=== PATIENT | male | born 1945 | race African-American/Black ===

== ENCOUNTER 2017-02-08 16:26 | Inpatient (IN) | payer MEDICARE ==
[~2017-02-08] VITALS: Ht 175.3 cm; Wt 74.8 kg
[2017-02-08 21:00] VITALS: BP 143/82
[2017-02-09] VITALS: BP 143/86
[2017-02-09 04:00] VITALS: BP 143/95
[2017-02-09 07:48] VITALS: BP 148/76
[2017-02-09 08:36] LABS: BASOPHILS % (AUTO) 0.9 % (0.0-2.0); EOSINOPHILS % (AUTO) 3.1 % (0.0-3.0); LYMPHOCYTES % (AUTO) 29.3 % (20.0-45.0); MEAN CORPUSCULAR HEMOGLOBIN 27.9 PG (27.0-31.0); MEAN CORPUSCULAR HGB CONC 31.1 G/DL (32.0-36.0); MEAN CORPUSCULAR VOLUME 90 FL (80-99); MEAN PLATELET VOLUME 8.5 FL (6.5-10.1); MONOCYTES % (AUTO) 15.8 % (1.0-10.0); PLATELET COUNT 199 K/UL (150-450); RED BLOOD COUNT 4.55 M/UL (4.70-6.10); RED CELL DISTRIBUTION WIDTH 12.7 % (11.6-14.8); WHITE BLOOD COUNT 5.1 K/UL (4.8-10.8)
[2017-02-09 08:49] LABS: HEMOGLOBIN A1C 7.1 % (< 6.0)
[2017-02-09 09:00] LABS: TROPONIN I < 0.30 ng/mL (<=0.30)
[2017-02-09 09:07] LABS: ALANINE AMINOTRANSFERASE 59 U/L (3-41); ANION GAP 13 (5-15); ASPARTATE AMINO TRANSFERASE 42 U/L (5-40); CALCIUM 9.6 mg/dL (8.6-10.2); CARBON DIOXIDE 29 mEQ/L (20-30); CHLORIDE 101 mEQ/L (98-107); CHOLESTEROL 103 mg/dL (< 200); CREATININE 0.7 mg/dL (0.7-1.2); HEMOLYSIS 4; LDL CHOLESTEROL (CALC.) 34 mg/dL (60-99); MAGNESIUM 2.1 mg/dL (1.7-2.5); PHOSPHORUS 3.4 mg/dL (2.5-4.8); POTASSIUM 3.3 mEQ/L (3.4-4.9); SODIUM 143 mEQ/L (135-145); TOTAL PROTEIN 7.3 g/dL (6.6-8.7)
[2017-02-09 11:27] VITALS: BP 149/76
--- NOTE | 2017-02-09 11:42 | Consultation ---
History of Present Illness General Date patient seen: February 09, 2017 Chief Complaint: TIa Present Illness HPI 72 year old male with hx of DM, HTN, was taken to [facility] with Acute encephalopathy and slurred speech. Pt's symptoms resolved. He is transferred [place] [facility] [place]. Currently he is comfortable, sounds slightly confused and from appearance self- neglected. Allergies: Coded Allergies: NO KNOWN ALLERGIES (Verified Allergy, Unknown, 02/08/17) Patient History Healthcare decision maker Resuscitation status Full Code Advanced Directive on File No Past Medical/Surgical History Past Medical/Surgical History: (1) HTN (hypertension) (2) Diabetes mellitus Review of Systems All Other Systems: negative except mentioned in HPI Physical Exam General Appearance: WD/WN Lines, tubes and drains: peripheral HEENT: normocephalic, atraumatic Neck: normal alignment, supple Respiratory/Chest: chest wall non-tender Breasts: no masses Abdomen: normal bowel sounds Extremities: severe edema - Left more than right, pitting Skin Exam: other - coarse edema Last 24 Hour Vital Signs Date Time Temp Pulse Resp B/P Pulse Ox O2 Delivery O2 Flow Rate FiO2 02/09/17 11:27 97.0 82 20 149/76 100 Nasal Cannula 2.0 02/09/17 08:14 75 148/76 02/09/17 08:00 84 02/09/17 07:48 97.9 75 20 148/76 100 Nasal Cannula 2.0 02/09/17 04:00 97.2 74 16 143/95 100 02/09/17 04:00 68 02/09/17 00:00 84 02/09/17 00:00 97.0 86 18 143/86 98 Nasal Cannula 2.0 02/08/17 21:00 97.7 86 18 143/82 100 Nasal Cannula 2.0 Intake and Output 02/08/17 02/09/17 19:00 07:00 Output Total 600 ml Balance -600 ml Output Urine Total 600 ml Laboratory Tests Test 02/09/17 07:37 White Blood Count 5.1 K/UL (4.8-10.8) Red Blood Count 4.55 M/UL (4.70-6.10) L Hemoglobin 12.7 G/DL (14.2-18.0) L Hematocrit 40.8 % (42.0-52.0) L Mean Corpuscular Volume 90 FL (80-99) Mean Corpuscular Hemoglobin 27.9 PG (27.0-31.0) Mean Corpuscular Hemoglobin Concent 31.1 G/DL (32.0-36.0) L Red Cell Distribution Width 12.7 % (11.6-14.8) Platelet Count 199 K/UL (150-450) Mean Platelet Volume 8.5 FL (6.5-10.1) Neutrophils (%) (Auto) 51.0 % (45.0-75.0) Lymphocytes (%) (Auto) 29.3 % (20.0-45.0) Monocytes (%) (Auto) 15.8 % (1.0-10.0) H Eosinophils (%) (Auto) 3.1 % (0.0-3.0) H Basophils (%) (Auto) 0.9 % (0.0-2.0) Sodium Level 143 mEQ/L (135-145) Potassium Level 3.3 mEQ/L (3.4-4.9) L Chloride Level 101 mEQ/L (98-107) Carbon Dioxide Level 29 mEQ/L (20-30) Anion Gap 13 (5-15) Blood Urea Nitrogen 16 mg/dL (7-23) Creatinine 0.7 mg/dL (0.7-1.2) Estimat Glomerular Filtration Rate mL/min (>60) Glucose Level 106 mg/dL (74-106) Hemoglobin A1c 7.1 % (< 6.0) H Calcium Level 9.6 mg/dL (8.6-10.2) Phosphorus Level 3.4 mg/dL (2.5-4.8) Magnesium Level 2.1 mg/dL (1.7-2.5) Total Bilirubin 0.3 mg/dL (0.0-1.2) Aspartate Amino Transf (AST/SGOT) 42 U/L (5-40) H Alanine Aminotransferase (ALT/SGPT) 59 U/L (3-41) H Alkaline Phosphatase 103 U/L (40-129) Troponin I < 0.30 ng/mL (<=0.30) Pro-B-Type Natriuretic Peptide 227 pg/mL (0-125) H Total Protein 7.3 g/dL (6.6-8.7) Albumin 3.7 g/dL (3.5-5.2) Globulin 3.6 g/dL Albumin/Globulin Ratio 1.0 (1.0-2.7) Triglycerides Level 89 mg/dL (< 150) Cholesterol Level 103 mg/dL (< 200) LDL Cholesterol 34 mg/dL (60-99) L HDL Cholesterol 51 mg/dL (> 60) Cholesterol/HDL Ratio 2.0 (3.3-4.4) L Height (Feet): 5 Height (Inches): 9.00 Weight (Pounds): 165 Medications Current Medications Medications (Trade) Dose Ordered Sig/Courtney Route PRN Reason Start Time Stop Time Status Last Admin Dose Admin Atorvastatin Calcium (Lipitor) 20 mg BEDTIME ORAL 02/09/17 21:00 03/11/17 20:59 Carvedilol (Coreg) 3.125 mg EVERY 12 HOURS ORAL 02/09/17 09:00 03/11/17 08:59 02/09/17 08:14 Potassium Chloride (K-Dur) 40 meq ONCE ONCE ORAL 02/09/17 12:00 02/09/17 12:01 Assessment/Plan Problem List: (1) Transient ischemic attack (TIA) ICD Codes: G45.9 - Transient cerebral ischemic attack, unspecified SNOMED: 056625630, 877062419 (2) HTN (hypertension) ICD Codes: I10 - Essential (primary) hypertension SNOMED: 12768821 (3) Diabetes mellitus ICD Codes: E11.9 - Type 2 diabetes mellitus without complications SNOMED: 49794379 Assessment/Plan neuro evaluation echo venous doppler of legs monitor bp pt/ot anemia w/u. OLMAN MCKEON February 09, 2017 11:42
[2017-02-09] MEDS ORDERED: ATORVASTATIN CA10 MG ORAL (11:54)
[2017-02-09] MEDS ORDERED: AMLODIPINE BESYL5 MG ORAL (12:04)
[2017-02-09] MEDS ORDERED: TRIAMTERENE-HC1 EAC5 ORAL (12:04)
[2017-02-09] MEDS ORDERED: NORMODYNE200 MG ORAL (12:04)
[2017-02-09] MEDS ORDERED: GLIMEPIRIDE4 MG ORAL (12:04)
[2017-02-09] MEDS ORDERED: GLYBURIDE MICRON6 MG PO (12:06)
--- NOTE | 2017-02-09 13:23 | History & Physical ---
History and Physical History & Physicial Dictated for Int Med-Dr Sarmiento no. [id number]. CHRISTAL ATKINS February 09, 2017 13:23
--- NOTE | 2017-02-09 13:44 | Neurology Progress Note ---
Objective Physical Exam Last Vital Signs Date Time Temp Pulse Resp B/P Pulse Ox O2 Delivery O2 Flow Rate FiO2 02/09/17 12:00 82 02/09/17 11:27 97.0 20 149/76 100 Nasal Cannula 2.0 Laboratory Tests Test 02/09/17 07:37 White Blood Count 5.1 K/UL (4.8-10.8) Red Blood Count 4.55 M/UL (4.70-6.10) L Hemoglobin 12.7 G/DL (14.2-18.0) L Hematocrit 40.8 % (42.0-52.0) L Mean Corpuscular Volume 90 FL (80-99) Mean Corpuscular Hemoglobin 27.9 PG (27.0-31.0) Mean Corpuscular Hemoglobin Concent 31.1 G/DL (32.0-36.0) L Red Cell Distribution Width 12.7 % (11.6-14.8) Platelet Count 199 K/UL (150-450) Mean Platelet Volume 8.5 FL (6.5-10.1) Neutrophils (%) (Auto) 51.0 % (45.0-75.0) Lymphocytes (%) (Auto) 29.3 % (20.0-45.0) Monocytes (%) (Auto) 15.8 % (1.0-10.0) H Eosinophils (%) (Auto) 3.1 % (0.0-3.0) H Basophils (%) (Auto) 0.9 % (0.0-2.0) Sodium Level 143 mEQ/L (135-145) Potassium Level 3.3 mEQ/L (3.4-4.9) L Chloride Level 101 mEQ/L (98-107) Carbon Dioxide Level 29 mEQ/L (20-30) Anion Gap 13 (5-15) Blood Urea Nitrogen 16 mg/dL (7-23) Creatinine 0.7 mg/dL (0.7-1.2) Estimat Glomerular Filtration Rate mL/min (>60) Glucose Level 106 mg/dL (74-106) Hemoglobin A1c 7.1 % (< 6.0) H Calcium Level 9.6 mg/dL (8.6-10.2) Phosphorus Level 3.4 mg/dL (2.5-4.8) Magnesium Level 2.1 mg/dL (1.7-2.5) Total Bilirubin 0.3 mg/dL (0.0-1.2) Aspartate Amino Transf (AST/SGOT) 42 U/L (5-40) H Alanine Aminotransferase (ALT/SGPT) 59 U/L (3-41) H Alkaline Phosphatase 103 U/L (40-129) Troponin I < 0.30 ng/mL (<=0.30) Pro-B-Type Natriuretic Peptide 227 pg/mL (0-125) H Total Protein 7.3 g/dL (6.6-8.7) Albumin 3.7 g/dL (3.5-5.2) Globulin 3.6 g/dL Albumin/Globulin Ratio 1.0 (1.0-2.7) Triglycerides Level 89 mg/dL (< 150) Cholesterol Level 103 mg/dL (< 200) LDL Cholesterol 34 mg/dL (60-99) L HDL Cholesterol 51 mg/dL (> 60) Cholesterol/HDL Ratio 2.0 (3.3-4.4) L Impression/Recommendations Problems: (1) Hypoglycemia associated with diabetes (2) HTN (hypertension) Recommendations # [id number] LAINA MENDEZ February 09, 2017 13:44
[2017-02-09 15:40] VITALS: BP 133/85
[2017-02-09] MEDS: Glimepiride 4mg tab ORAL SCH (16:42)
[2017-02-09] MEDS: NovoLOG Insulin Flexpen SUBQ SCH ×2 (17:15→21:00)
--- NOTE | 2017-02-09 19:48 | History and Physical Report ---
DATE OF ADMISSION: 02/08/2017 CHIEF COMPLAINT: The patient is a 72-year-old male, presents with chief complaint of "feeling funny," double vision, and slurred speech. History Of Present Illness: The patient states that he has been falling recently. The patient now walks with a cane. The patient states he was sitting in a chair [place] morning about 9:30. The patient states he began to "feel funny." The patient picked up his phone to call his girlfriend. The patient then began to experience double vision. The numbers on the telephone he was seeing two or three of each number. The patient is having trouble dialing the phone. When the patient's girlfriend answered the phone, she stated that his speech was slurred. The patient also had some weakness of the bilateral lower extremities. The patient states when he got up, he realized he had wet himself. The patient was initially transported via EMS to [facility]. The patient was transferred to [facility] for insurance reasons. The patient's slurred speech and double vision has now resolved. The patient is admitted for TIA to rule out possible cerebrovascular accident. REVIEW OF SYSTEMS: Constitutional: The patient denies weight loss or weight gain. The patient denies fevers or chills. HEENT: The patient complains of slurred speech as above. The patient complains of double vision as above. The patient denies headache, ear pain, or throat pain. Cardiovascular: The patient denies palpitations or chest pain. Chest: The patient denies wheezes or shortness of breath. Abdomen: The patient denies nausea, vomiting, or constipation. Genitourinary: The patient reports one episode of urine incontinence as above. The patient denies dysuria or increased frequency of urination. Neuromuscular: The patient complains of generalized weakness briefly as above. The patient denies seizures. PAST MEDICAL HISTORY: Significant for: 1. Hypertension. 2. Diabetes type 2. PAST SURGICAL HISTORY: The patient denies. CURRENT MEDICATIONS: 1. Amlodipine 5 mg one tablet p.o. daily. 2. Lipitor 10 mg one tablet p.o. at bedtime. 3. Glimepiride 4 mg one tablet by mouth q.a.c. dinner. 4. Glyburide 6 mg one tablet p.o. daily. 5. Labetalol 200 mg one tablet p.o. daily. 6. Triamterene/hydrochlorothiazide 37.5/25 one tablet p.o. daily. ALLERGIES: No known drug allergies. SOCIAL HISTORY: The patient is single, however, has a long-time girlfriend. The patient lives alone. The patient admits to rare alcohol use. The patient denies tobacco use. The patient is retired. PHYSICAL EXAMINATION: VITAL SIGNS: Temperature 97.0, respirations 18, pulse 84, and blood pressure 143/86. GENERAL: The patient is a well developed, well nourished, thin-appearing male, in no apparent distress. HEENT: Eyes, pupils are equal and responsive to light and accommodation. Extraocular movements are intact. NECK: Supple without lymphadenopathy. CHEST: Lungs are clear to auscultation bilaterally without wheezes or rales. CARDIOVASCULAR: Regular rate. S1 and S2. No murmurs, rubs, or gallops. ABDOMEN: Soft, nontender, and nondistended. Positive bowel sounds. No evidence of hepatosplenomegaly currently, no rebound or regarding. EXTREMITIES: No clubbing, cyanosis, or edema. RECTAL/GENITAL: Refused. NEUROLOGICAL: Neurologically, cranial nerves II through XII gross intact without focal deficits. Motor strength is 5/5 bilaterally. Deep tendon reflexes are 2+ plantar. LABORATORY STUDIES: From [place]: WBC 6.3, hemoglobin 13.1, hematocrit 40.1, and platelets 223,000. Sodium 140, potassium 4.3, chloride 100, CO2 28, BUN 22, creatinine 0.97, and glucose 88. Troponin less than 0.02. ProTime 14.2, INR 1.1, and PTT 30. CT scan of the brain failed to demonstrate acute intracerebral hemorrhage or acute stroke. ASSESSMENT: This is a 72-year-old male: 1. Dysarthria. 2. Generalized weakness. 3. Temporary altered mental status. 4. Hypertension. 5. Diabetes. TREATMENT: 1. Generalized weakness/dysarthria/diplopia. These symptoms have now resolved. The patient may have experienced a transient ischemic attack. A Neurology consultation is pending with Dr. Soriano. An MRI of the brain is pending. Carotid duplex and Dopplers are pending. An echocardiogram is pending. We will follow recommendations of Neurology. 2. Hypertension. Continue Dyazide and Norvasc as above. 3. Diabetes. Continue Amaryl and glimepiride as above. 4. Diabetes type 2. Continue glyburide and glimepiride as above. Regular insulin sliding scale has been instituted. Magdi Mckeon M.D. DR: JOCELIN JOB#: [id number] CC:
[2017-02-09 20:00] VITALS: BP 133/79
[2017-02-09] MEDS: Atorvastatin 20mg tab ORAL SCH (21:00)
--- NOTE | 2017-02-09 22:28 | Consultation ---
DATE OF CONSULTATION: 02/09/2017 NEUROLOGICAL CONSULTATION CONSULTING PHYSICIAN: Bharat Soriano M.D. REQUESTING PHYSICIAN: Kwan Sarmiento M.D. HISTORY OF PRESENT ILLNESS: The patient is a 72-year-old gentleman seen in neurological consultation to evaluate possible transient ischemic attack. According the patient and his daughter who was present during his examination note that last week the patient started to feel somewhat drowsy and weak but still was functioning daily. Two ago, he was in his truck, moving to other street. While sitting in a car he started to develop generalized weakness. He felt somewhat confused. This lasted about for an hour. He was able to get up and walk and walk back home when his neighbor noticed that he is not "doing well." He went home, yesterday he had some brief sleep at night time and woke up around 9 a.m.feeling very weak. He was trying to call on a cell to his girlfriend but was able to see only double numbers and had difficulty to find numbers on the phone. When spoke informed, he was very dysarthric and at that point, the girlfriend came in and called paramedics. He was taken to [facility]. His vital signs were stable but he was described as dysarthric with right-sided weakness, TIA was suspected. Blood sugar was 30. The patient's daughter described him as being very confused, not recognizing her, slurred speech. The patient was given IV fluids with D50 and his condition rapidly improved back to his baseline. TIA was suspected. Workup further workup was necessary and he was brought to this hospital. The patient described as being comfortable although somewhat confused and " appearance was self neglected". The patient lately forgot to check his blood pressure and blood sugar regularly as necessary. His vital signs on admission were stable. Blood pressure 149/79. Laboratory work was obtained this revealed mild anemia, hemoglobin 12.7, hematocrit 40.8. Chemistry panel potassium 3.3, elevated AST 42, ALT 59. BNP 227. Blood sugar 106. Normal lipid panel. CAT scan of the brain obtained during his initial evaluation at [facility] was reported as negative PAST MEDICAL HISTORY: History of hypertension,venostasis both lower extremities, diabetes type 2, hyperlipidemia. MEDICATIONS: Treatment included amlodipine, atorvastatin, glimepiride, glyburide, labetalol, and Dyazide ALLERGIES: None reported. SOCIAL HISTORY: Lives alone, has a girlfriend. His daughter is supportive. No alcohol. No drug abuse. 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 REVIEW OF SYSTEMS: Denies headache or dizziness. Denies chest pain or palpitations. No respiratory problems. Denies abdominal pain or discomfort. No urine or bowel incontinence. No numbness, tingling. No unilateral weakness. PHYSICAL EXAMINATION: MENTAL STATUS: The patient is alert and oriented x3 with no evidence of aphasia or apraxia. Cognitive function normal. He is a poor historian, but coherent. CRANIAL NERVE II: Pupils both responding to light and accommodation. Extraocular movement intact. No nystagmus. No diplopia. Visual javier are full to confrontation. CRANIAL NERVE V: Normal corneal responses. CRANIAL NERVE VII: No facial asymmetry. CRANIAL NERVE VIII: Normal hearing. CRANIAL NERVE IX THROUGH XII: Tongue is in midline. Symmetric palate elevation. MOTOR EXAMINATION: Motor examination revealed normal muscle tone. Strength 5/5 in all extremities. No involuntary movement. There is significant changes in both feet and ankles with 1+ pitting edema. Deep tendon reflexes depressed bilaterally. Plantar response is mute. No pathological responses. Sensory examination normal to pin stimulation, reduction, and proprioception both feet. Gait unstable using cane. IMPRESSION: 1. History of transient confusion, disorientation, profound generalized weakness with blood sugar of 30, represent hypoglycemic event, doubt presence of transient ischemic attack or stroke. 2. Diabetes mellitus type 2. 3. Hypertension. 4. Abnormal gait, multifactorial. RECOMMENDATION/DISCUSSION: The patient has no evidence of previous changes in level of consciousness or transient ischemic attack like symptomatology now developed protracted generalized weakness and speech abnormality, culminated with confusion, disorientation, diplopia. He denies unilateral weakness with blood sugar dropping 30 this would signify presence of hypoglycemic event. The patient does have multiple stroke risk factors which should be well controlled in addition he will continue with the Lipitor and started on aspirin 81 mg daily. Thank you for allowing me to see this interesting patient in neurological consultation . Bharat Soriano M.D. DR: Chirag JOB#: [id number] CC:
[2017-02-10] VITALS (7 sets, daily range): BP systolic 129–150; BP diastolic 75–89
[2017-02-10] MEDS: NovoLOG Insulin Flexpen SUBQ SCH ×4 (05:21→20:57)
[2017-02-10 06:06] LABS: BASOPHILS % (AUTO) 1.8 % (0.0-2.0); EOSINOPHILS % (AUTO) 3.1 % (0.0-3.0); MEAN CORPUSCULAR HGB CONC 30.8 G/DL (32.0-36.0); MEAN CORPUSCULAR VOLUME 91 FL (80-99); MEAN PLATELET VOLUME 7.6 FL (6.5-10.1); MONOCYTES % (AUTO) 15.6 % (1.0-10.0); NEUTROPHILS % (AUTO) 47.5 % (45.0-75.0); PLATELET COUNT 167 K/UL (150-450); RED BLOOD COUNT 4.07 M/UL (4.70-6.10); RED CELL DISTRIBUTION WIDTH 12.9 % (11.6-14.8); WHITE BLOOD COUNT 5.3 K/UL (4.8-10.8)
[2017-02-10 06:26] LABS: INR 1.1 (0.9-1.1); PROTHROMBIN TIME 10.8 SEC (9.30-11.50)
[2017-02-10 06:35] LABS: TROPONIN I < 0.30 ng/mL (<=0.30)
[2017-02-10 08:30] LABS: ANION GAP 17 (5-15); CALCIUM 9.1 mg/dL (8.6-10.2); CARBON DIOXIDE 23 mEQ/L (20-30); CHLORIDE 104 mEQ/L (98-107); CREATININE 0.8 mg/dL (0.7-1.2); HEMOLYSIS 4; POTASSIUM 3.8 mEQ/L (3.4-4.9); SODIUM 144 mEQ/L (135-145)
[2017-02-10 09:38] LABS: ERYTHROCYTE SEDIMENTATION RATE 50 MM/HR (0-20); PATH BLOOD SMEAR/OMC SENT TO PATHOLOGIST
[2017-02-10 11:39] LABS: RETICULOCYTE COUNT 0.8 % (0.0-2.0)
[2017-02-10 11:47] LABS: BAND NEUTROPHILS % (MANUAL) 0 % (0-8); BASOPHILS % (MANUAL) 0 % (0-2); EOSINOPHILS % (MANUAL) 6 % (0-3); LYMPHOCYTES % (MANUAL) 31 % (20-45); NEUTROPHILS % (MANUAL) 50 % (45-75); PLATELET ESTIMATE ADEQUATE; PLATELET MORPHOLOGY NORMAL; TOTAL CELLS COUNTED 100
[2017-02-10 11:48] LABS: HYPOCHROMASIA 1+
--- NOTE | 2017-02-10 15:56 | Internal Med Progress Note ---
Subjective Date of Service: February 10, 2017 Physician Name Magdi Atkins Attending Physician Kwan Sarmiento MD Current Medications Medications (Trade) Dose Ordered Sig/Courtney Route PRN Reason Start Time Stop Time Status Last Admin Dose Admin Amlodipine Besylate (Norvasc) 5 mg DAILY ORAL 02/10/17 09:00 03/12/17 08:59 02/10/17 10:23 Atorvastatin Calcium (Lipitor) 20 mg BEDTIME ORAL 02/09/17 21:00 03/11/17 20:59 02/09/17 21:00 Carvedilol (Coreg) 3.125 mg EVERY 12 HOURS ORAL 02/09/17 09:00 03/11/17 08:59 02/10/17 10:21 Dextrose (Dextrose 50%) STAT PRN IV Hypoglycemia 02/09/17 14:00 03/11/17 13:59 Glimepiride (Amaryl) 8 mg QPM ORAL 02/09/17 16:30 03/11/17 16:29 02/09/17 16:42 Insulin Aspart (NovoLOG) BEFORE MEALS AND HS SUBQ 02/09/17 16:30 03/11/17 16:29 02/10/17 12:19 Allergies: Coded Allergies: NO KNOWN ALLERGIES (Verified Allergy, Unknown, 02/08/17) ROS Limited/Unobtainable: No Constitutional: Reports: weakness HEENT: Reports: no symptoms Cardiovascular: Reports: no symptoms Respiratory: Reports: no symptoms Gastrointestinal/Abdominal: Reports: no symptoms Genitourinary: Reports: no symptoms Neurologic/Psychiatric: Reports: no symptoms Subjective 71 YO M admitted with gen weakness, diplopia and dysarthria. Cover for Int Med- Dr Sarmiento. Objective Last Vital Signs Date Time Temp Pulse Resp B/P Pulse Ox O2 Delivery O2 Flow Rate FiO2 02/10/17 15:36 97.2 89 20 149/83 95 Room Air 02/10/17 04:00 2.0 Laboratory Tests Test 02/10/17 04:35 02/10/17 15:11 White Blood Count 5.3 K/UL (4.8-10.8) Red Blood Count 4.07 M/UL (4.70-6.10) L Hemoglobin 11.4 G/DL (14.2-18.0) L Hematocrit 37.0 % (42.0-52.0) L Mean Corpuscular Volume 91 FL (80-99) Mean Corpuscular Hemoglobin 28.0 PG (27.0-31.0) Mean Corpuscular Hemoglobin Concent 30.8 G/DL (32.0-36.0) L Red Cell Distribution Width 12.9 % (11.6-14.8) Platelet Count 167 K/UL (150-450) Mean Platelet Volume 7.6 FL (6.5-10.1) Neutrophils (%) (Auto) 47.5 % (45.0-75.0) Lymphocytes (%) (Auto) 32.0 % (20.0-45.0) Monocytes (%) (Auto) 15.6 % (1.0-10.0) H Eosinophils (%) (Auto) 3.1 % (0.0-3.0) H Basophils (%) (Auto) 1.8 % (0.0-2.0) Differential Total Cells Counted 100 Neutrophils % (Manual) 50 % (45-75) Lymphocytes % (Manual) 31 % (20-45) Monocytes % (Manual) 13 % (1-10) H Eosinophils % (Manual) 6 % (0-3) H Basophils % (Manual) 0 % (0-2) Band Neutrophils 0 % (0-8) Platelet Estimate Adequate Platelet Morphology Normal Hypochromasia 1+ Erythrocyte Sedimentation Rate 50 MM/HR (0-20) H Reticulocyte Count 0.8 % (0.0-2.0) Prothrombin Time 10.8 SEC (9.30-11.50) Prothromb Time International Ratio 1.1 (0.9-1.1) Activated Partial Thromboplast Time 23 SEC (23-33) Sodium Level 144 mEQ/L (135-145) Potassium Level 3.8 mEQ/L (3.4-4.9) Chloride Level 104 mEQ/L (98-107) Carbon Dioxide Level 23 mEQ/L (20-30) Anion Gap 17 (5-15) H Blood Urea Nitrogen 20 mg/dL (7-23) Creatinine 0.8 mg/dL (0.7-1.2) Estimat Glomerular Filtration Rate mL/min (>60) Glucose Level 93 mg/dL (74-106) Calcium Level 9.1 mg/dL (8.6-10.2) Iron Level 40 ug/dL (59-158) L Total Iron Binding Capacity 191 ug/dL (250-400) L Percent Iron Saturation 21 % (15-50) Unsaturated Iron Binding 151 ug/dL (112-346) Lactate Dehydrogenase 190 U/L (135-230) Troponin I < 0.30 ng/mL (<=0.30) Carcinoembryonic Antigen 2.3 ng/mL Vitamin B12 Level 1085 pg/mL (211-946) H Folate Pending Stool Occult Blood Pending Intake and Output 02/09/17 02/10/17 19:00 07:00 Intake Total 740 ml 240 ml Output Total 350 ml 500 ml Balance 390 ml -260 ml Intake Oral 740 ml 240 ml Output Urine Total 350 ml 500 ml Objective General: alert, cooperative, no distress, appears stated age Head: normocephalic, without obvious abnormality, atraumatic Eyes: conjunctivae/corneas clear. PERRL, EOM's intact Throat: lips, mucosa, and tongue normal. MMM Neck: supple, symmetrical, trachea midline, and no JVD Lungs: clear to auscultation bilaterally Heart: regular rate and rhythm, S1, S2 normal, no murmur, click, rub or gallop Abdomen: soft, non-tender, non-distended, bowel sounds normal; no masses or organomegaly Extremities: extremities normal, atraumatic, no cyanosis or edema Pulses: 2+ and symmetric Skin: skin color, texture, turgor normal; no rashes or lesions Neurologic: grossly normal, no focal deficits Assessment/Plan Problem List: (1) Dysarthria (2) Diplopia (3) Generalized weakness (4) HTN (hypertension) Assessment & Plan: Cont amlodipine (5) Transient ischemic attack (TIA) Assessment & Plan: Await MRI brain, carotid doppler and echocardiogram. (6) Hypoglycemia associated with diabetes Assessment & Plan: D/C glyburide. (7) Diabetes mellitus Assessment & Plan: D/C glyburide; cont novolog sliding scale and amaryl. Status: progressing MAGDI ATKINS February 10, 2017 15:56
[2017-02-10] MEDS: Glimepiride 4mg tab ORAL SCH (17:15)
[2017-02-10] MEDS: Atorvastatin 20mg tab ORAL SCH (21:03)
--- NOTE | 2017-02-10 22:37 | Pulmonology Progress Note ---
Assessment/Plan Problems: (1) Transient ischemic attack (TIA) (2) HTN (hypertension) (3) Diabetes mellitus Assessment/Plan venous doppler echo carotid artery neuro and cardio evaluation all notes reviewed. Subjective ROS Limited/Unobtainable: No Allergies: Coded Allergies: NO KNOWN ALLERGIES (Verified Allergy, Unknown, 02/08/17) Objective Last 24 Hour Vital Signs Date Time Temp Pulse Resp B/P Pulse Ox O2 Delivery O2 Flow Rate FiO2 02/10/17 21:02 84 144/84 02/10/17 20:31 98.6 84 20 144/84 94 Room Air 02/10/17 15:36 97.2 89 20 149/83 95 Room Air 02/10/17 15:01 80 02/10/17 11:21 97.7 94 20 150/87 100 Room Air 02/10/17 10:23 85 139/89 02/10/17 10:21 85 139/89 02/10/17 10:20 85 139/89 02/10/17 10:18 85 139/89 02/10/17 09:49 85 02/10/17 08:12 97.9 85 20 139/89 98 Room Air 02/10/17 07:56 97.9 85 20 129/75 95 Room Air 02/10/17 04:00 74 02/10/17 04:00 97.5 75 18 129/78 98 Nasal Cannula 2.0 02/10/17 00:18 98.1 83 19 141/80 96 Nasal Cannula 2.0 02/10/17 00:03 75 Intake and Output 02/09/17 02/10/17 19:00 07:00 Intake Total 740 ml 240 ml Output Total 350 ml 500 ml Balance 390 ml -260 ml Intake Oral 740 ml 240 ml Output Urine Total 350 ml 500 ml Objective HEENT: normocephalic, atraumatic Respiratory/Chest: chest wall non-tender, lungs clear Cardiovascular: normal peripheral pulses, normal rate Abdomen: normal bowel sounds, no organomegaly Extremities: no cyanosis, left leg edema Skin: no rash, no lesions 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 Lymphatic: no neck adenopathy Musculoskeletal: normal muscle bulk Laboratory Tests 02/10/17 04:35: White Blood Count 5.3, Red Blood Count 4.07L, Hemoglobin 11.4L, Hematocrit 37.0L , Mean Corpuscular Volume 91, Mean Corpuscular Hemoglobin 28.0, Mean Corpuscular Hemoglobin Concent 30.8L, Red Cell Distribution Width 12.9, Platelet Count 167, Mean Platelet Volume 7.6, Neutrophils (%) (Auto) 47.5, Lymphocytes (%) (Auto) 32.0, Monocytes (%) (Auto) 15.6H, Eosinophils (%) (Auto) 3.1H, Basophils (%) (Auto) 1.8, Differential Total Cells Counted 100, Neutrophils % (Manual) 50, Lymphocytes % (Manual) 31, Monocytes % (Manual) 13H, Eosinophils % (Manual) 6H, Basophils % (Manual) 0, Band Neutrophils 0, Platelet Estimate Adequate, Platelet Morphology Normal, Hypochromasia 1+, Erythrocyte Sedimentation Rate 50H, Reticulocyte Count 0.8, Prothrombin Time 10.8, Prothromb Time International Ratio 1.1, Activated Partial Thromboplast Time 23, Sodium Level 144, Potassium Level 3.8, Chloride Level 104, Carbon Dioxide Level 23, Anion Gap 17H, Blood Urea Nitrogen 20, Creatinine 0.8, Estimat Glomerular Filtration Rate , Glucose Level 93, Calcium Level 9.1, Iron Level 40L, Total Iron Binding Capacity 191L, Percent Iron Saturation 21, Unsaturated Iron Binding 151, Lactate Dehydrogenase 190, Troponin I < 0.30, Carcinoembryonic Antigen 2.3, Vitamin B12 Level 1085H, Folate [Pending] 02/10/17 15:11: Stool Occult Blood [Pending] Current Medications Medications (Trade) Dose Ordered Sig/Courtney Route PRN Reason Start Time Stop Time Status Last Admin Dose Admin Amlodipine Besylate (Norvasc) 5 mg DAILY ORAL 02/10/17 09:00 03/12/17 08:59 02/10/17 10:23 Atorvastatin Calcium (Lipitor) 20 mg BEDTIME ORAL 02/09/17 21:00 03/11/17 20:59 02/10/17 21:03 Carvedilol (Coreg) 3.125 mg EVERY 12 HOURS ORAL 02/09/17 09:00 03/11/17 08:59 02/10/17 21:02 Dextrose (Dextrose 50%) STAT PRN IV Hypoglycemia 02/09/17 14:00 03/11/17 13:59 Glimepiride (Amaryl) 8 mg QPM ORAL 02/09/17 16:30 6/5/17 16:29 02/10/17 17:15 Insulin Aspart (NovoLOG) BEFORE MEALS AND HS SUBQ 02/09/17 16:30 03/11/17 16:29 02/10/17 17:02 OLMAN MCKEON February 10, 2017 22:37
[2017-02-11] VITALS (7 sets, daily range): BP systolic 120–158; BP diastolic 63–90
[2017-02-11] MEDS: NovoLOG Insulin Flexpen SUBQ SCH ×4 (06:08→20:51)
[2017-02-11 07:25] LABS: BASOPHILS % (AUTO) 0.9 % (0.0-2.0); LYMPHOCYTES % (AUTO) 38.1 % (20.0-45.0); MEAN CORPUSCULAR HEMOGLOBIN 28.4 PG (27.0-31.0); MEAN CORPUSCULAR HGB CONC 31.4 G/DL (32.0-36.0); MEAN CORPUSCULAR VOLUME 90 FL (80-99); MEAN PLATELET VOLUME 8.2 FL (6.5-10.1); NEUTROPHILS % (AUTO) 38.1 % (45.0-75.0); PLATELET COUNT 174 K/UL (150-450); RED BLOOD COUNT 3.99 M/UL (4.70-6.10); RED CELL DISTRIBUTION WIDTH 12.5 % (11.6-14.8)
[2017-02-11 08:38] LABS: ANION GAP 15 (5-15); CALCIUM 9.4 mg/dL (8.6-10.2); CARBON DIOXIDE 25 mEQ/L (20-30); CHLORIDE 101 mEQ/L (98-107); CREATININE 0.7 mg/dL (0.7-1.2); HEMOLYSIS 6; POTASSIUM 3.6 mEQ/L (3.4-4.9); SODIUM 141 mEQ/L (135-145)
--- NOTE | 2017-02-11 08:50 | Cardiology Report ---
APPROVED REPORT EXAM: Two-dimensional and M-mode echocardiogram with Doppler and color Doppler. INDICATION CVA M-Mode DIMENSIONS IVSd0.8 (0.7-1.1cm)Left Atrium (MM)1.9 (1.6-4.0cm) LVDd4.3 (3.5-5.6cm)Aortic Root3.1 (2.0-3.7cm) PWd0.9 (0.7-1.1cm)Aortic Cusp Exc.1.8 (1.5-2.0cm) LVDs3.0 (2.5-4.0cm) PWs1.4 cm Technically difficult study due to poor acoustic windows. Normal left ventricular chamber size, systolic function and wall motion. Left ventricular ejection fraction estimated to be 55-60%. Mild left ventricular hypertrophy. No evidence of pericardial fat or effusion. Mild bi-atrial enlargement by 2D. Calcified focal aortic valve sclerosis with adequate cusp excursion Thickened mitral valve leaflets with normal excursion. Mild mitral annulus and aortic root calcification. Pulmonic valve not well visualized. Normal tricuspid valve structure. IVC is normal in size with physiologic collapse. A color flow and spectral Doppler study was performed and revealed: No aortic regurgitation. No mitral regurgitation. Left ventricular diastolic dysfunction grade 1. No tricuspid regurgitation.
--- NOTE | 2017-02-11 10:14 | Internal Med Progress Note ---
Subjective Date of Service: February 11, 2017 Physician Name LindaChristal Attending Physician Kwan Sarmiento MD Current Medications Medications (Trade) Dose Ordered Sig/Courtney Route PRN Reason Start Time Stop Time Status Last Admin Dose Admin Amlodipine Besylate (Norvasc) 5 mg DAILY ORAL 02/10/17 09:00 03/12/17 08:59 02/10/17 10:23 Atorvastatin Calcium (Lipitor) 20 mg BEDTIME ORAL 02/09/17 21:00 03/11/17 20:59 02/10/17 21:03 Carvedilol (Coreg) 3.125 mg EVERY 12 HOURS ORAL 02/09/17 09:00 03/11/17 08:59 02/10/17 21:02 Dextrose (Dextrose 50%) STAT PRN IV Hypoglycemia 02/09/17 14:00 03/11/17 13:59 Glimepiride (Amaryl) 8 mg QPM ORAL 02/09/17 16:30 03/11/17 16:29 02/10/17 17:15 Insulin Aspart (NovoLOG) BEFORE MEALS AND HS SUBQ 02/09/17 16:30 03/11/17 16:29 02/10/17 17:02 Allergies: Coded Allergies: NO KNOWN ALLERGIES (Verified Allergy, Unknown, 02/08/17) ROS Limited/Unobtainable: No Constitutional: Reports: no symptoms HEENT: Reports: no symptoms Cardiovascular: Reports: no symptoms Respiratory: Reports: no symptoms Gastrointestinal/Abdominal: Reports: no symptoms Genitourinary: Reports: no symptoms Neurologic/Psychiatric: Reports: no symptoms Subjective 71 YO M admitted with gen weakness, diplopia and dysarthria. Cover for Int Med- Dr Sarmiento. Objective Last Vital Signs Date Time Temp Pulse Resp B/P Pulse Ox O2 Delivery O2 Flow Rate FiO2 02/11/17 08:20 75 02/11/17 08:18 98.1 20 143/81 96 Room Air 02/11/17 08:00 96.0 Laboratory Tests Test 02/10/17 15:11 02/11/17 04:40 Stool Occult Blood Pending White Blood Count 5.0 K/UL (4.8-10.8) Red Blood Count 3.99 M/UL (4.70-6.10) L Hemoglobin 11.3 G/DL (14.2-18.0) L Hematocrit 36.0 % (42.0-52.0) L Mean Corpuscular Volume 90 FL (80-99) Mean Corpuscular Hemoglobin 28.4 PG (27.0-31.0) Mean Corpuscular Hemoglobin Concent 31.4 G/DL (32.0-36.0) L Red Cell Distribution Width 12.5 % (11.6-14.8) Platelet Count 174 K/UL (150-450) Mean Platelet Volume 8.2 FL (6.5-10.1) Neutrophils (%) (Auto) 38.1 % (45.0-75.0) L Lymphocytes (%) (Auto) 38.1 % (20.0-45.0) Monocytes (%) (Auto) 18.0 % (1.0-10.0) H Eosinophils (%) (Auto) 5.0 % (0.0-3.0) H Basophils (%) (Auto) 0.9 % (0.0-2.0) Sodium Level 141 mEQ/L (135-145) Potassium Level 3.6 mEQ/L (3.4-4.9) Chloride Level 101 mEQ/L (98-107) Carbon Dioxide Level 25 mEQ/L (20-30) Anion Gap 15 (5-15) Blood Urea Nitrogen 17 mg/dL (7-23) Creatinine 0.7 mg/dL (0.7-1.2) Estimat Glomerular Filtration Rate mL/min (>60) Glucose Level 78 mg/dL (74-106) Calcium Level 9.4 mg/dL (8.6-10.2) Intake and Output 02/10/17 02/11/17 19:00 07:00 Intake Total 730 ml Output Total 600 ml 300 ml Balance 130 ml -300 ml Intake Oral 730 ml Output Urine Total 600 ml 300 ml # Voids 2 Objective General: alert, cooperative, no distress, appears stated age Head: normocephalic, without obvious abnormality, atraumatic Eyes: conjunctivae/corneas clear. PERRL, EOM's intact Throat: lips, mucosa, and tongue normal. MMM Neck: supple, symmetrical, trachea midline, and no JVD Lungs: clear to auscultation bilaterally Heart: regular rate and rhythm, S1, S2 normal, no murmur, click, rub or gallop Abdomen: soft, non-tender, non-distended, bowel sounds normal; no masses or organomegaly Extremities: extremities normal, atraumatic, no cyanosis or edema Pulses: 2+ and symmetric Skin: skin color, texture, turgor normal; no rashes or lesions Neurologic: grossly normal, no focal deficits Assessment/Plan Problem List: (1) Dysarthria (2) Diplopia (3) Generalized weakness (4) HTN (hypertension) Assessment & Plan: Cont amlodipine (5) Transient ischemic attack (TIA) Assessment & Plan: ?due to hypoglycemia? See neurology note. Await MRI brain and carotid doppler. (6) Hypoglycemia associated with diabetes Assessment & Plan: D/C glyburide. (7) Diabetes mellitus Assessment & Plan: D/C glyburide; cont novolog sliding scale and amaryl. Status: progressing Assessment/Plan Transfer to Med-Surg CHRISTAL Barba February 11, 2017 10:14
--- NOTE | 2017-02-11 11:27 | Diagnostic Imaging Report ---
Indications: Transient slurred speech and lower extremity weakness Technique: Sagittal and axial T1 weighted FLAIR, axial T2-weighted fat saturated fast spin echo propeller, T2-weighted FLAIR, T2*-weighted gradient echo, and diffusion sequences of the brain were performed without IV gadolinium administration. Findings: Comparison: None Small wedge-shaped, peripherally based focus of signal change/parenchymal loss with a small rim of T2 signal hyperintensity posterior aspect right occipital lobe. Confluent T2 signal hyperintensity throughout bilateral cerebral periventricular white matter. Ventricles, cisterns, sulci are mildly, diffusely prominent. No evidence of mass or hemorrhage, other signal abnormality, mass effect, midline shift, hydrocephalus, or increased intracranial pressure. No restricted diffusion. Central vascular flow voids are preserved. Mild mucoperiosteal thickening throughout paranasal sinuses. 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
--- NOTE | 2017-02-11 11:35 | Diagnostic Imaging Report ---
APPROVED REPORT CPT Code: 63705 Present Symptoms Lower Extremity Pain: Bilateral BILATERAL: Imaging reveals a patent deep venous system bilaterally. There is no evidence of thrombus within the femoral, popliteal or tibial segments. The greater saphenous veins are also within normal limits. Doppler indicates normal spontaneous flow within these segments.
--- NOTE | 2017-02-11 11:35 | Diagnostic Imaging Report ---
APPROVED REPORT CPT Code: 66270 Vascular Symptoms CVA/TIA: CAROTID (BILATERAL) - Imaging reveals no significant plaque within the right and left extracranial carotid arteries. The Doppler spectral flow analysis is within normal limits throughout the extracranial carotid arteries bilaterally. VERTEBRAL- The vertebral arteries are within normal limits.
[2017-02-11] MEDS: Glimepiride 4mg tab ORAL SCH (17:25)
[2017-02-11] MEDS ORDERED: Atorvastatin 20mg tab ORAL SCH (21:00)
[2017-02-12] VITALS: BP 131/80
[2017-02-12 04:00] VITALS: BP 123/73
[2017-02-12] MEDS: NovoLOG Insulin Flexpen SUBQ SCH ×3 (06:00→16:30)
[2017-02-12 07:07] LABS: ANION GAP 10 (5-15); CALCIUM 9.7 mg/dL (8.6-10.2); CARBON DIOXIDE 30 mEQ/L (20-30); CHLORIDE 105 mEQ/L (98-107); CREATININE 0.8 mg/dL (0.7-1.2); HEMOLYSIS 1; POTASSIUM 4.8 mEQ/L (3.4-4.9); SODIUM 145 mEQ/L (135-145)
[2017-02-12 07:29] LABS: BASOPHILS % (AUTO) 0.8 % (0.0-2.0); EOSINOPHILS % (AUTO) 5.4 % (0.0-3.0); LYMPHOCYTES % (AUTO) 38.1 % (20.0-45.0); MEAN CORPUSCULAR HEMOGLOBIN 28.2 PG (27.0-31.0); MEAN CORPUSCULAR HGB CONC 31.1 G/DL (32.0-36.0); MEAN CORPUSCULAR VOLUME 91 FL (80-99); MEAN PLATELET VOLUME 8.9 FL (6.5-10.1); MONOCYTES % (AUTO) 17.4 % (1.0-10.0); NEUTROPHILS % (AUTO) 38.2 % (45.0-75.0); PLATELET COUNT 184 K/UL (150-450); RED BLOOD COUNT 3.93 M/UL (4.70-6.10); RED CELL DISTRIBUTION WIDTH 12.7 % (11.6-14.8); WHITE BLOOD COUNT 4.6 K/UL (4.8-10.8)
[2017-02-12 08:00] VITALS: BP 132/73
[2017-02-12 11:25] VITALS: BP 131/73
[2017-02-12] MEDS ORDERED: ASPIRIN81 M3 PO (15:09)
[2017-02-12 15:40] VITALS: BP 133/77
[2017-02-12] MEDS: Glimepiride 4mg tab ORAL SCH (16:58)
--- NOTE | 2017-02-12 17:32 | Pulmonology Progress Note ---
Assessment/Plan Problems: (1) Transient ischemic attack (TIA) (2) HTN (hypertension) (3) Diabetes mellitus Assessment/Plan improving pt/pt f/u neuro recommendations dvt prophylaxis all notes and meds reviewed. Subjective ROS Limited/Unobtainable: No Interval Events: late note for 02/11: doing better, no new complains Allergies: Coded Allergies: NO KNOWN ALLERGIES (Verified Allergy, Unknown, 02/08/17) Objective Last 24 Hour Vital Signs Date Time Temp Pulse Resp B/P Pulse Ox O2 Delivery O2 Flow Rate FiO2 02/12/17 15:40 97.6 77 19 133/77 97 Room Air 02/12/17 11:25 97.9 84 19 131/73 98 Room Air 02/12/17 10:08 77 132/73 02/12/17 10:08 77 132/73 02/12/17 08:00 98.1 77 19 132/73 99 Room Air 02/12/17 04:00 97.7 76 20 123/73 99 Room Air 02/12/17 00:00 98.6 75 20 131/80 99 Room Air 02/11/17 20:50 78 120/63 02/11/17 20:00 98.1 81 19 142/90 100 Room Air Intake and Output 02/11/17 02/12/17 19:00 07:00 Intake Total 720 ml Balance 720 ml Intake Oral 720 ml # Voids 2 2 HEENT: normocephalic, atraumatic Respiratory/Chest: chest wall non-tender, lungs clear Cardiovascular: normal peripheral pulses, normal rate Abdomen: normal bowel sounds, no organomegaly Extremities: no cyanosis, pedal pulses normal, other - severe edema on Left leg unchanged Skin: no rash, no lesions 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 Lymphatic: no neck adenopathy Musculoskeletal: normal muscle bulk Laboratory Tests 02/12/17 05:25: White Blood Count 4.6L, Red Blood Count 3.93L, Hemoglobin 11.1L, Hematocrit 35.7L, Mean Corpuscular Volume 91, Mean Corpuscular Hemoglobin 28.2, Mean Corpuscular Hemoglobin Concent 31.1L, Red Cell Distribution Width 12.7, Platelet Count 184, Mean Platelet Volume 8.9, Neutrophils (%) (Auto) 38.2L, Lymphocytes (%) (Auto) 38.1, Monocytes (%) (Auto) 17.4H, Eosinophils (%) (Auto) 5.4H, Basophils (%) (Auto) 0.8, Sodium Level 145, Potassium Level 4.8, Chloride Level 105, Carbon Dioxide Level 30, Anion Gap 10, Blood Urea Nitrogen 17, Creatinine 0.8, Estimat Glomerular Filtration Rate , Glucose Level 113H, Calcium Level 9.7 Current Medications Medications (Trade) Dose Ordered Sig/Courtney Route PRN Reason Start Time Stop Time Status Last Admin Dose Admin Amlodipine Besylate (Norvasc) 5 mg DAILY ORAL 02/12/17 09:00 03/14/17 08:59 02/12/17 10:08 Atorvastatin Calcium (Lipitor) 20 mg BEDTIME ORAL 02/11/17 21:00 03/13/17 20:59 02/11/17 20:50 Carvedilol (Coreg) 3.125 mg EVERY 12 HOURS ORAL 02/11/17 21:00 03/13/17 20:59 02/12/17 10:08 Dextrose (Dextrose 50%) STAT PRN IV Hypoglycemia 02/11/17 15:00 03/13/17 14:59 Glimepiride (Amaryl) 8 mg QPM ORAL 02/11/17 16:30 03/13/17 16:29 02/12/17 16:58 Insulin Aspart (NovoLOG) BEFORE MEALS AND HS SUBQ 02/11/17 16:30 03/13/17 16:29 02/11/17 20:51 OLMAN MCKEON February 12, 2017 17:32
--- NOTE | 2017-02-12 17:33 | Pulmonology Progress Note ---
Assessment/Plan Problems: (1) Transient ischemic attack (TIA) (2) HTN (hypertension) (3) Diabetes mellitus Assessment/Plan improving pt/pt f/u neuro recommendations dvt prophylaxis all notes and meds reviewed. dc home with pt ot Subjective ROS Limited/Unobtainable: No Allergies: Coded Allergies: NO KNOWN ALLERGIES (Verified Allergy, Unknown, 02/08/17) Objective Last 24 Hour Vital Signs Date Time Temp Pulse Resp B/P Pulse Ox O2 Delivery O2 Flow Rate FiO2 02/12/17 15:40 97.6 77 19 133/77 97 Room Air 02/12/17 11:25 97.9 84 19 131/73 98 Room Air 02/12/17 10:08 77 132/73 02/12/17 10:08 77 132/73 02/12/17 08:00 98.1 77 19 132/73 99 Room Air 02/12/17 04:00 97.7 76 20 123/73 99 Room Air 02/12/17 00:00 98.6 75 20 131/80 99 Room Air 02/11/17 20:50 78 120/63 02/11/17 20:00 98.1 81 19 142/90 100 Room Air Intake and Output 02/11/17 02/12/17 19:00 07:00 Intake Total 720 ml Balance 720 ml Intake Oral 720 ml # Voids 2 2 Objective HEENT: normocephalic, atraumatic Respiratory/Chest: chest wall non-tender, lungs clear Cardiovascular: normal peripheral pulses, normal rate Abdomen: normal bowel sounds, no organomegaly Extremities: no cyanosis, left leg edema Skin: no rash, no lesions 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 Lymphatic: no neck adenopathy Musculoskeletal: normal muscle bulk Laboratory Tests 02/12/17 05:25: White Blood Count 4.6L, Red Blood Count 3.93L, Hemoglobin 11.1L, Hematocrit 35.7L, Mean Corpuscular Volume 91, Mean Corpuscular Hemoglobin 28.2, Mean Corpuscular Hemoglobin Concent 31.1L, Red Cell Distribution Width 12.7, Platelet Count 184, Mean Platelet Volume 8.9, Neutrophils (%) (Auto) 38.2L, Lymphocytes (%) (Auto) 38.1, Monocytes (%) (Auto) 17.4H, Eosinophils (%) (Auto) 5.4H, Basophils (%) (Auto) 0.8, Sodium Level 145, Potassium Level 4.8, Chloride Level 105, Carbon Dioxide Level 30, Anion Gap 10, Blood Urea Nitrogen 17, Creatinine 0.8, Estimat Glomerular Filtration Rate , Glucose Level 113H, Calcium Level 9.7 Current Medications Medications (Trade) Dose Ordered Sig/Courtney Route PRN Reason Start Time Stop Time Status Last Admin Dose Admin Amlodipine Besylate (Norvasc) 5 mg DAILY ORAL 02/12/17 09:00 03/14/17 08:59 02/12/17 10:08 Atorvastatin Calcium (Lipitor) 20 mg BEDTIME ORAL 02/11/17 21:00 03/13/17 20:59 02/11/17 20:50 Carvedilol (Coreg) 3.125 mg EVERY 12 HOURS ORAL 02/11/17 21:00 03/13/17 20:59 02/12/17 10:08 Dextrose (Dextrose 50%) STAT PRN IV Hypoglycemia 02/11/17 15:00 03/13/17 14:59 Glimepiride (Amaryl) 8 mg QPM ORAL 02/11/17 16:30 03/13/17 16:29 02/12/17 16:58 Insulin Aspart (NovoLOG) BEFORE MEALS AND HS SUBQ 02/11/17 16:30 03/13/17 16:29 02/11/17 20:51 OLMAN MCKEON February 12, 2017 17:32
--- NOTE | 2017-02-12 18:14 | Internal Med Progress Note ---
Subjective Date of Service: February 12, 2017 Physician Name Magdi Atkins Attending Physician Kwan Sarmiento MD Current Medications Medications (Trade) Dose Ordered Sig/Courtney Route PRN Reason Start Time Stop Time Status Last Admin Dose Admin Amlodipine Besylate (Norvasc) 5 mg DAILY ORAL 02/12/17 09:00 03/14/17 08:59 02/12/17 10:08 Atorvastatin Calcium (Lipitor) 20 mg BEDTIME ORAL 02/11/17 21:00 03/13/17 20:59 02/11/17 20:50 Carvedilol (Coreg) 3.125 mg EVERY 12 HOURS ORAL 02/11/17 21:00 03/13/17 20:59 02/12/17 10:08 Dextrose (Dextrose 50%) STAT PRN IV Hypoglycemia 02/11/17 15:00 03/13/17 14:59 Glimepiride (Amaryl) 8 mg QPM ORAL 02/11/17 16:30 03/13/17 16:29 02/12/17 16:58 Insulin Aspart (NovoLOG) BEFORE MEALS AND HS SUBQ 02/11/17 16:30 03/13/17 16:29 02/11/17 20:51 Allergies: Coded Allergies: NO KNOWN ALLERGIES (Verified Allergy, Unknown, 02/08/17) ROS Limited/Unobtainable: No Constitutional: Reports: no symptoms HEENT: Reports: no symptoms Cardiovascular: Reports: no symptoms Respiratory: Reports: no symptoms Gastrointestinal/Abdominal: Reports: no symptoms Genitourinary: Reports: no symptoms Neurologic/Psychiatric: Reports: no symptoms Subjective 71 YO M admitted with gen weakness, diplopia and dysarthria. Cover for Int Med- Dr Sarmiento. Objective Last Vital Signs Date Time Temp Pulse Resp B/P Pulse Ox O2 Delivery O2 Flow Rate FiO2 02/12/17 15:40 97.6 77 19 133/77 97 Room Air 02/11/17 08:00 96.0 Laboratory Tests Test 02/12/17 05:25 White Blood Count 4.6 K/UL (4.8-10.8) L Red Blood Count 3.93 M/UL (4.70-6.10) L Hemoglobin 11.1 G/DL (14.2-18.0) L Hematocrit 35.7 % (42.0-52.0) L Mean Corpuscular Volume 91 FL (80-99) Mean Corpuscular Hemoglobin 28.2 PG (27.0-31.0) Mean Corpuscular Hemoglobin Concent 31.1 G/DL (32.0-36.0) L Red Cell Distribution Width 12.7 % (11.6-14.8) Platelet Count 184 K/UL (150-450) Mean Platelet Volume 8.9 FL (6.5-10.1) Neutrophils (%) (Auto) 38.2 % (45.0-75.0) L Lymphocytes (%) (Auto) 38.1 % (20.0-45.0) Monocytes (%) (Auto) 17.4 % (1.0-10.0) H Eosinophils (%) (Auto) 5.4 % (0.0-3.0) H Basophils (%) (Auto) 0.8 % (0.0-2.0) Sodium Level 145 mEQ/L (135-145) Potassium Level 4.8 mEQ/L (3.4-4.9) Chloride Level 105 mEQ/L (98-107) Carbon Dioxide Level 30 mEQ/L (20-30) Anion Gap 10 (5-15) Blood Urea Nitrogen 17 mg/dL (7-23) Creatinine 0.8 mg/dL (0.7-1.2) Estimat Glomerular Filtration Rate mL/min (>60) Glucose Level 113 mg/dL (74-106) H Calcium Level 9.7 mg/dL (8.6-10.2) Intake and Output 02/11/17 02/12/17 19:00 07:00 Intake Total 720 ml Balance 720 ml Intake Oral 720 ml # Voids 2 2 Objective General: alert, cooperative, no distress, appears stated age Head: normocephalic, without obvious abnormality, atraumatic Eyes: conjunctivae/corneas clear. PERRL, EOM's intact Throat: lips, mucosa, and tongue normal. MMM Neck: supple, symmetrical, trachea midline, and no JVD Lungs: clear to auscultation bilaterally Heart: regular rate and rhythm, S1, S2 normal, no murmur, click, rub or gallop Abdomen: soft, non-tender, non-distended, bowel sounds normal; no masses or organomegaly Extremities: extremities normal, atraumatic, no cyanosis or edema Pulses: 2+ and symmetric Skin: skin color, texture, turgor normal; no rashes or lesions Neurologic: grossly normal, no focal deficits Assessment/Plan Problem List: (1) Dysarthria (2) Diplopia (3) Generalized weakness (4) HTN (hypertension) Assessment & Plan: Cont amlodipine (5) Transient ischemic attack (TIA) Assessment & Plan: ?due to hypoglycemia? See neurology note. Await MRI brain and carotid doppler. (6) Hypoglycemia associated with diabetes Assessment & Plan: D/C glyburide. (7) Diabetes mellitus Assessment & Plan: D/C glyburide; cont novolog sliding scale and amaryl. Status: stable Assessment/Plan Discharge home today. MAGDI ATKINS February 12, 2017 18:14
--- NOTE | 2017-02-13 20:19 | Discharge Summary ---
Discharge Summary Hospital Course Date of Admission February 08, 2017 at 21:07 Date of Discharge February 12, 2017 at 18:43 Admitting Diagnosis HPI Mikey Luis Carlos Shore Jr is a 72 year old male who was admitted on February 08, 2017 at 21: 07 for transient ischemic attack, cerebrovascular acciden Hospital Course [id number] Discharge Discharge Disposition Patient was discharged to Home with Home Health(06) Discharge Diagnoses: Myrna Camargo NP February 13, 2017 20:19
--- NOTE | 2017-02-14 00:29 | Discharge Summary 2 SIG ---
DATE OF ADMISSION: 02/08/2017 DATE OF DISCHARGE: 02/12/2017 CONSULTANTS: 1. Dylan Allison M.D. 2. Bharat Soriano M.D. BRIEF HOSPITAL COURSE: The patient is a 72-year-old male, who presented to ED, comes with chief complaint of feeling funny, double vision and slurred speech. The patient stated that he has been falling recently and has been recently walking with a cane. He started feeling funny and experienced double vision and had difficulty dialing the phone. He was noted to have like slurred speech and also had some weakness on bilateral lower extremities. He got up and realized that he had wet himself. He initially presented to [facility] via EMS and was eventually transferred to [facility] for insurance reasons. Slurred speech and double vision had resolved. The patient was admitted for TIA. The patient was admitted for neurologic evaluation. CAT scan of the brain done at [facility] was reported to be negative. The patient was apparently given IV fluids with D50 and his condition rapidly improved back to baseline. The patient has multiple stroke risk factors and was continued on his antihypertensives, aspirin and Lipitor. A venous duplex of lower extremity was negative for DVT. Echocardiogram showed ejection fraction of 55% to 60%. Carotid ultrasound showed no significant plaque within the right and left carotid. Vertebral arteries are also within normal limits. A brain MRI showed no evidence of acute infarct with a small old infarct on the right occipital lobe. The patient underwent physical therapy evaluation and neurologic status improved. The patient was eventually discharged home with home health. FINAL DIAGNOSES: 1. Transient ischemic attack. 2. Hypoglycemia. 3. Diabetes mellitus. 4. Hypertension. 5. Diplopia. 6. Dysarthria. 7. Abnormal gait. 8. Hypertension. Kwan Sarmiento M.D. I have been assigned to dictate discharge summary on this account and I was not involved in the patient's management. Myrna Camargo N.P. DR: MADELINE JOB#: [id number] CC:
== END 2017-02-12 18:43 | disposition home health service (06) | DRG 69 ==
LOC: 2E 21:07 → 4E 02-11 14:39
DX: G45.9 Transient cerebral ischemic attack, unspecified (principal); E11.649 Type 2 diabetes mellitus with hypoglycemia without coma; I10 Essential (primary) hypertension; R26.9 Unspecified abnormalities of gait and mobility; R47.1 Dysarthria and anarthria; E78.5 Hyperlipidemia, unspecified; H53.2 Diplopia; Z91.81 History of falling
CPT/HCPCS: 36415; 70551; 80048; 80053; 80061; 82270; 82378; 82607; 82746; 82962; 83036; 83540; 83550; 83615; 83735; 83880; 84100; 84484; 85007; 85025; 85044; 85060; 85610; 85651; 85730; 93306; 93880; 93970; J1815; J8499